=== PATIENT | male | born 1955 | race Caucasian/White ===

== ENCOUNTER 2023-05-11 13:15 | Outpatient (RCR) | payer MEDICARE, OTHER, SELFPAY | END 2023-09-08 23:59 | disposition home or self-care (01) | PROVIDERS: PCP Family Medicine; Visit Provider Family Medicine | DX: M54.16 Radiculopathy, lumbar region (principal); Z51.89 Encounter for other specified aftercare | CPT/HCPCS: 97110; 97161 ==

== ENCOUNTER 2024-05-17 12:43 | Outpatient (CLI) | payer MEDICARE, SELFPAY ==
--- NOTE | 2024-05-17 14:25 | W.ANESCHARGE ---
Anesthesia Charges Start Date/Time Anesthesia Start Date: 05/17/24 Anesthesia Start Time: 14:00 Stop Date/Time Anesthesia Stop Date: 05/17/24 Anesthesia Stop Time: 14:20 Coding CPT Codes CPT Codes: ANES UPR GI NDSC PX NOS - 72238 ([id number]) P2 - PATIENT W/MILD SYST DISEASE, QK - SEWER INSPECTOR 2-4 CNCRNT ANES PROC, QX - FLYER BUILDER SVC W/ MD MED DIRECTION
--- NOTE | 2024-05-17 14:27 | W.ANESCHARGE ---
Anesthesia Charges Start Date/Time Anesthesia Start Date: 05/17/24 Anesthesia Start Time: 14:00 Stop Date/Time Anesthesia Stop Date: 05/17/24 Anesthesia Stop Time: 14:20 Summary Extremes of Age - Over 70 or under 1: MDA Coding CPT Codes CPT Codes: ANES UPR GI NDSC PX NOS - 12487 ([id number]) QK - SEAFOOD MANAGER 2-4 CNCRNT ANES PROC, QX - SENIOR MARKETING COORDINATOR SVC W/ MD MED DIRECTION, P2 - PATIENT W/MILD SYST DISEASE Additional Codes: Summary - Extremes of Age - Over 70 or under 1: MDA ([id number])
== END 2024-05-17 12:44 | disposition home or self-care (01) ==
LOC: OP CLINIC 12:46
PROVIDERS: PCP Family Medicine; Visit Provider Internal Medicine Gastroenterology
DX: R10.13 Epigastric pain (principal); R63.4 Abnormal weight loss; K31.89 Other diseases of stomach and duodenum
CPT/HCPCS: 00731; 43239; 88305; 88342; 99100; J2704